=== PATIENT | female | born 1990 | race African-American/Black ===

== ENCOUNTER 2023-11-27 12:09 | Inpatient (IN) | payer OTHER ==
[2023-11-27 13:03] VITALS: RESP 16; BMI 25.2
[2023-11-27] MEDS ORDERED: MAG HYDROX/AL HYDROX/SIMETH 30 ML UNIT-DOSE CUP PO PRN (17:58)
[2023-11-27] MEDS ORDERED: LOPERAMIDE HCL 2 MG CAPSULE PO PRN (17:58)
[2023-11-27] MEDS ORDERED: guaiFENesin 600 MG TABLET.ER (FP) PO PRN (17:58)
[2023-11-27] MEDS ORDERED: NALOXONE (NARCAN) HCL 4 MG/0.1 ML SPRAY NS PRN (17:58)
[2023-11-27] MEDS ORDERED: hydrOXYzine PAMOATE 25 MG CAPSULE (FP) PO PRN (17:58)
[2023-11-27] MEDS ORDERED: MAGNESIUM HYDROX 2400MG/30ML ORAL SUSPENSION 30 ML CUP PO PRN (17:58)
[2023-11-27] MEDS ORDERED: BENZONATATE 200 MG CAPSULE PO PRN (17:58)
[2023-11-27] MEDS ORDERED: IBUPROFEN 600 MG TABLET (FP) PO PRN (17:58)
[2023-11-27] MEDS ORDERED: POLYETHYLENE GLYCOL (HEALTHYLAX) 3350 17 GM PACKET PO PRN (17:58)
[2023-11-27] MEDS ORDERED: ACETAMINOPHEN 325 MG TABLET (FP) PO PRN (17:58)
[2023-11-27] MEDS ORDERED: BENZOCAINE/MENTHOL (CHLORASEPTIC ) LOZENGE MM PRN (17:58)
[2023-11-27] MEDS ORDERED: IBUPROFEN 400 MG TABLET (FP) PO PRN (17:58)
[2023-11-27] MEDS ORDERED: ALBUTEROL SO4 HFA INHALER IH PRN (18:05)
[2023-11-27] MEDS: NICOTINE POLACRILEX 2 MG GUM BUC PRN (19:06)
[2023-11-27] MEDS: NICOTINE 21 MG/24 HOURS TOPICAL PATCH TD SCH (19:08)
[2023-11-27 20:15] LABS: URINE APPEARANCE CLEAR; URINE BILIRUBIN NEGATIVE (NEGATIVE); URINE COLOR YELLOW; URINE GLUCOSE (UA) NEGATIVE (NEGATIVE); URINE KETONE NEGATIVE (NEGATIVE); URINE LEUK ESTERASE NEGATIVE (NEGATIVE); URINE NITRITE NEGATIVE (NEGATIVE); URINE PROTEIN NEGATIVE (NEGATIVE); URINE UROBILINOGEN 0.2 mg/dL (0.2-1.0)
[2023-11-27] MEDS: MELATONIN 5 MG TABLETS PO SCH (22:50)
[2023-11-27] MEDS: THIAMINE 100 MG TABLET PO SCH (22:50)
[2023-11-28] MEDS: PRENATAL VITAMINS W/ FOLIC ACID TABLET (FP) PO SCH (10:14)
[2023-11-28 12:05] LABS: HEMATOCRIT 39.7 % (32.4-45.2); MCH 28.1 pg (25.7-33.7); MCHC 32.8 g/dl (32.0-36.0); MEAN CELL VOLUME 85.7 fl (80-96); MEAN PLT VOLUME 7.7 fl (7.5-11.1); PLATELET COUNT 320 10^3/uL (134-434); RBC 4.63 M/mm3 (3.60-5.2); RDW 14.5 % (11.6-15.6); WHITE BLOOD COUNT 4.3 K/mm3 (4.0-10.0)
[2023-11-28 12:13] LABS: CHLORIDE 110 mmol/L (98-107); POTASSIUM 4.5 mmol/L (3.5-5.1); SODIUM 138 mmol/L (136-145)
[2023-11-28 12:19] LABS: CALCIUM 8.9 mg/dL (8.5-10.1)
[2023-11-28 12:20] LABS: ANION GAP 3 mmol/L (4-13); BLOOD UREA NITROGEN 13.4 mg/dL (7-18); CO2 26 mmol/L (21-32); GLUCOSE,RANDOM 91 mg/dL (74-106)
[2023-11-28 12:21] LABS: SGPT/ALT 20 U/L (13-61)
[2023-11-28 12:22] LABS: SGOT/AST 16 U/L (15-37)
[2023-11-28 12:23] LABS: BILIRUBIN,TOTAL 0.3 mg/dL (0.2-1); CREATININE 0.8 mg/dL (0.55-1.3); TOT PROT 6.7 g/dl (6.4-8.2)
[2023-11-28 12:24] LABS: ALK PHOS 78 U/L (45-117)
[2023-11-28 15:20] LABS: SYPHILIS W/ RPR CONF NON-REACTIVE (NONREACTIVE)
[2023-11-29 06:34] VITALS: BP 122/84; PULSE 95; TEMP 96.9
[2023-11-29] MEDS: NALOXONE (NYS OPIOID OVERDOSE PROGRAM) 4 MG/0.1 ML SPRAY NS PRN (13:03)
== END 2023-11-29 13:30 | disposition home or self-care (01) | DRG 772 ==
LOC: YASAS 12:09 → Y3NR 17:47 → Y5N 11-28 10:02
PROVIDERS: ADMIT Surgery; ATTEND Psychiatry & Neurology Pain Medicine
PROC: HZ42ZZZ Group Counseling for Substance Abuse Treatment, Cognitive-Behavioral (ICD-10-PCS; principal; 2023-11-27)
DX: F14.20 Cocaine dependence, uncomplicated (principal); F17.210 Nicotine dependence, cigarettes, uncomplicated; F41.9 Anxiety disorder, unspecified; E16.2 Hypoglycemia, unspecified; G47.00 Insomnia, unspecified; J45.909 Unspecified asthma, uncomplicated
CPT/HCPCS: 36415; 80053; 80305; 80307; 81003; 81025; 82962; 85027; 86780; 86803; 87811; 93005; 93010